=== PATIENT | female | born 1960 | race Hispanic/Latino ===

== ENCOUNTER 2018-06-15 11:29 | Emergency (ER) | payer MEDICARE ==
[2018-06-15] MEDS ORDERED: KETOROLAC TROMETHAMINE 60 MG/2 ML VIAL ONE (12:02)
== END 2018-06-15 12:57 | disposition home or self-care (01) ==
LOC: EDH 11:29
DX: S13.4XXA Sprain of ligaments of cervical spine, initial encounter (principal); E11.9 Type 2 diabetes mellitus without complications; I10 Essential (primary) hypertension; E78.5 Hyperlipidemia, unspecified; Z88.6 Allergy status to analgesic agent; Z88.2 Allergy status to sulfonamides; V49.59XA Passenger injured in collision with other motor vehicles in traffic accident, initial encounter; Y93.89 Activity, other specified; Y92.89 Other specified places as the place of occurrence of the external cause; Y99.8 Other external cause status
CPT/HCPCS: 72040; 99284; J1885

== ENCOUNTER → 2023-06-16 | Outpatient (CLI) | payer MEDICARE ==
[~2023-06-16] MED LIST: HONEY 1 APPL/ML TUBE TP ONE; LIDOCAINE HCL 4% LTA SOL 4 ML VIAL ONE
== END | disposition home or self-care (01) ==
LOC: WHH 08:37
PROVIDERS: ATTEND Nurse Practitioner Family
DX: E11.621 Type 2 diabetes mellitus with foot ulcer (principal); L97.522 Non-pressure chronic ulcer of other part of left foot with fat layer exposed; L97.512 Non-pressure chronic ulcer of other part of right foot with fat layer exposed; G60.0 Hereditary motor and sensory neuropathy; I10 Essential (primary) hypertension; E78.5 Hyperlipidemia, unspecified; E66.9 Obesity, unspecified; F32.A Depression, unspecified; M19.90 Unspecified osteoarthritis, unspecified site; Z68.30 Body mass index [BMI] 30.0-30.9, adult; Z90.710 Acquired absence of both cervix and uterus; Z79.82 Long term (current) use of aspirin; Z79.84 Long term (current) use of oral hypoglycemic drugs; Z79.899 Other long term (current) drug therapy
CPT/HCPCS: 11042; A4450

== ENCOUNTER → 2023-06-23 | Outpatient (CLI) | payer MEDICARE | END | disposition home or self-care (01) | LOC: WHH 08:18 | PROVIDERS: ATTEND Nurse Practitioner Family | DX: E11.621 Type 2 diabetes mellitus with foot ulcer (principal); L97.522 Non-pressure chronic ulcer of other part of left foot with fat layer exposed; L97.512 Non-pressure chronic ulcer of other part of right foot with fat layer exposed; G60.0 Hereditary motor and sensory neuropathy; I10 Essential (primary) hypertension; E78.5 Hyperlipidemia, unspecified; E66.9 Obesity, unspecified; F32.A Depression, unspecified; M19.90 Unspecified osteoarthritis, unspecified site; Z68.30 Body mass index [BMI] 30.0-30.9, adult; Z90.710 Acquired absence of both cervix and uterus; Z79.82 Long term (current) use of aspirin; Z79.84 Long term (current) use of oral hypoglycemic drugs; Z79.899 Other long term (current) drug therapy | CPT/HCPCS: 11042 ==

== ENCOUNTER → 2023-06-30 | Outpatient (CLI) | payer MEDICARE | END | disposition home or self-care (01) | LOC: WHH 08:03 | PROVIDERS: ATTEND Nurse Practitioner Family | DX: E11.621 Type 2 diabetes mellitus with foot ulcer (principal); L97.522 Non-pressure chronic ulcer of other part of left foot with fat layer exposed; L97.512 Non-pressure chronic ulcer of other part of right foot with fat layer exposed; G60.0 Hereditary motor and sensory neuropathy; I10 Essential (primary) hypertension; E78.5 Hyperlipidemia, unspecified; E66.9 Obesity, unspecified; F32.A Depression, unspecified; M19.90 Unspecified osteoarthritis, unspecified site; Z68.30 Body mass index [BMI] 30.0-30.9, adult; Z90.710 Acquired absence of both cervix and uterus; Z79.82 Long term (current) use of aspirin; Z79.84 Long term (current) use of oral hypoglycemic drugs; Z79.899 Other long term (current) drug therapy | CPT/HCPCS: 11042; A6209 ==

== ENCOUNTER → 2023-07-07 | Outpatient (CLI) | payer MEDICARE | END | disposition home or self-care (01) | LOC: WHH 08:14 | PROVIDERS: ATTEND Nurse Practitioner Family | DX: E11.621 Type 2 diabetes mellitus with foot ulcer (principal); L97.522 Non-pressure chronic ulcer of other part of left foot with fat layer exposed; L97.512 Non-pressure chronic ulcer of other part of right foot with fat layer exposed; G60.0 Hereditary motor and sensory neuropathy; I10 Essential (primary) hypertension; E78.5 Hyperlipidemia, unspecified; E66.9 Obesity, unspecified; F32.A Depression, unspecified; M19.90 Unspecified osteoarthritis, unspecified site; Z68.30 Body mass index [BMI] 30.0-30.9, adult; Z90.710 Acquired absence of both cervix and uterus; Z79.82 Long term (current) use of aspirin; Z79.84 Long term (current) use of oral hypoglycemic drugs; Z79.899 Other long term (current) drug therapy | CPT/HCPCS: 11042; A6021; A6209; A4450 ==

== ENCOUNTER → 2023-07-21 | Outpatient (CLI) | payer MEDICARE | END | disposition home or self-care (01) | LOC: WHH 07:59 | PROVIDERS: ATTEND Nurse Practitioner Family | DX: E11.621 Type 2 diabetes mellitus with foot ulcer (principal); L97.412 Non-pressure chronic ulcer of right heel and midfoot with fat layer exposed; L97.522 Non-pressure chronic ulcer of other part of left foot with fat layer exposed; L97.512 Non-pressure chronic ulcer of other part of right foot with fat layer exposed; G60.0 Hereditary motor and sensory neuropathy; I10 Essential (primary) hypertension; E78.5 Hyperlipidemia, unspecified; E66.9 Obesity, unspecified; F32.A Depression, unspecified; M19.90 Unspecified osteoarthritis, unspecified site; Z68.30 Body mass index [BMI] 30.0-30.9, adult; Z90.710 Acquired absence of both cervix and uterus; Z79.82 Long term (current) use of aspirin; Z79.84 Long term (current) use of oral hypoglycemic drugs; Z79.899 Other long term (current) drug therapy | CPT/HCPCS: G0463 ==

== ENCOUNTER → 2023-08-07 | Outpatient (CLI) | payer MEDICARE | END | disposition home or self-care (01) | LOC: WHH 08:04 | PROVIDERS: ATTEND Nurse Practitioner Family | DX: E11.621 Type 2 diabetes mellitus with foot ulcer (principal); L97.412 Non-pressure chronic ulcer of right heel and midfoot with fat layer exposed; L97.512 Non-pressure chronic ulcer of other part of right foot with fat layer exposed; L97.522 Non-pressure chronic ulcer of other part of left foot with fat layer exposed; G60.0 Hereditary motor and sensory neuropathy; I10 Essential (primary) hypertension; E78.5 Hyperlipidemia, unspecified; E66.9 Obesity, unspecified; F32.A Depression, unspecified; M19.90 Unspecified osteoarthritis, unspecified site; Z68.30 Body mass index [BMI] 30.0-30.9, adult; Z90.710 Acquired absence of both cervix and uterus; Z79.82 Long term (current) use of aspirin; Z79.84 Long term (current) use of oral hypoglycemic drugs; Z79.899 Other long term (current) drug therapy | CPT/HCPCS: G0463 ==

== ENCOUNTER → 2024-12-23 | Outpatient (CLI) | payer OTHER, MEDICARE ==
[~2024-12-23] MED LIST changes: -HONEY 1 APPL/ML TUBE TP ONE; +IOHEXOL 350 MG/ML 100ML INFUS..BTL IV ONE; -LIDOCAINE HCL 4% LTA SOL 4 ML VIAL ONE; +metoPROLOL tartRATE 1 MG/ML 5ML VIAL IV ONE
--- NOTE | 2024-12-23 15:10 | HMCIMG ---
CT CARDIAC ANGIO W/CONT. CCTA HISTORY: Chest pain COMPARISON: None TECHNIQUE: Multiple sequential axial images of the chest were obtained along with the CT angiogram of the chest study. Patient was given 100 cc of Omnipaque through intravenous route. FINDINGS: There is no evidence of pulmonary nodule or parenchymal disease. No pleural effusion or pericardial effusion is seen. There is no evidence of pneumothorax. There are normal size mediastinal and hilar lymph nodes. The heart is not enlarged. Degenerative changes of the thoracolumbar spine are present. IMPRESSION: 1. No evidence of pulmonary nodule or effusion is seen. Please see CT angiogram report of coronary arteries.
--- NOTE | 2024-12-27 13:55 | CARDIOLOGY ---
RAD REPORT: CORNARY CT ANGIO RADIOLOGY REPORT: CORONARY CT ANGIOGRAPHY DATE: December 27, 2024 QUALITY: Excellent CLINICAL HISTORY AND INDICATION: [ chest pain] TECHNIQUE: After obtaining a preliminary mobile security specialist image, contrast imaging performed on an [employer]illon [id number] scanner. A dedicated, limited window, coronary imaging protocol was used, with single breath-hold, retrospective ECG gating, and automated arrhythmia rejection. 100 cc of low osmolar contrast agent: Omnipaque 350 was delivered via a 18-gauge IV catheter in the right antecubital fossa, using a power injector and followed by 60 cc of normal saline bolus as a chaser. Collimated images were reformatted at 0.5 mm intervals, and sent to an offline independent workstation for interpretation, using 3D anatomic reconstructions: Curved multiplanar reconstructions, maximum intensity projections, and multiplanar imaging. 10 mg IV metoprolol was administered prior to scanning. 0.8 mg SL nitroglycerin was given. CORONARY ARTERY DESCRIPTIONS: The coronary arteries arise in normal position. Left main coronary artery: Normal caliber vessel that bifurcates into the LAD and LCx. No stenosis. Left anterior descending coronary artery: Normal caliber vessel and gives rise to diagonal and septal branches. There is calcified plaque in the proximal LAD with 20-30% stenosis. Left circumflex coronary artery: Normal caliber, nondominant and gives rise to a large OM branch. No stenosis. Right coronary artery: Large, dominant vessel giving rise to the PL and PDA branches. No stenosis. CAD-RADs: 2, mild non-obstructive CAD. Thoracic Aorta: Normal diameter. Jennifer Valdez MD Cardiovascular Disease [facility] JENNIFER VALDEZ MD December 27, 2024 13:55
== END | disposition home or self-care (01) ==
LOC: RAH 12-13 08:12
PROVIDERS: ATTEND Internal Medicine Cardiovascular Disease
DX: I20.9 Angina pectoris, unspecified (principal); M47.815 Spondylosis without myelopathy or radiculopathy, thoracolumbar region
CPT/HCPCS: 75574; J3490; Q9967 ×2

== ENCOUNTER 2025-01-19 11:23 | Emergency (ER) | payer OTHER, MEDICARE ==
[~2025-01-19] VITALS: Ht 147.3 cm; Wt 90.7 kg
[2025-01-19] MEDS: CYCLOBENZAPRINE HCL 10 MG TABLET PO ONE (12:20)
[2025-01-19] MEDS: ibuPROFEN 600 MG TABLET PO ONE (12:21)
[2025-01-19] MEDS ORDERED: CYCL10TA16 PO (12:48)
[2025-01-19] MEDS ORDERED: MELO-108 PO (12:48)
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
[2025-01-19 12:55] VITALS: BP 147/63; PULSE 72; RESP 16; TEMP 97.9; O2SAT 99
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
== END 2025-01-19 13:00 | disposition home or self-care (01) ==
LOC: EDH 11:23
DX: S13.4XXA Sprain of ligaments of cervical spine, initial encounter (principal); E11.9 Type 2 diabetes mellitus without complications; E78.00 Pure hypercholesterolemia, unspecified; I10 Essential (primary) hypertension; Z88.2 Allergy status to sulfonamides; Z88.5 Allergy status to narcotic agent; V89.2XXA Person injured in unspecified motor-vehicle accident, traffic, initial encounter; Y93.89 Activity, other specified; Y92.89 Other specified places as the place of occurrence of the external cause; Y99.8 Other external cause status
CPT/HCPCS: 72050; 73030; 99284

== ENCOUNTER 2025-05-10 14:05 | Emergency (ER) | payer OTHER, MEDICAID ==
[~2025-05-10] VITALS: Ht 147.3 cm; Wt 88.5 kg
[~2025-05-10 14:05] MED LIST changes: +CYCL10TA16 PO; -IOHEXOL 350 MG/ML 100ML INFUS..BTL IV ONE; +MELO-108 PO; -metoPROLOL tartRATE 1 MG/ML 5ML VIAL IV ONE
[2025-05-10 15:20] LABS: IMMATURE GRANULOCYTE ABSOLUTE 0.02 K/uL (0-1); NUCLEATED RED BLOOD CELLS 0.0 % (0.0-0.19); PLATELET COUNT (AUTO) 161 K/uL (130-400); RED BLOOD CELL COUNT(AUTO) 4.42 MIL/uL (4.00-5.50); RED CELL DISTRIBUTION WIDTH 13.2 % (11.0-15.5); WHITE BLOOD COUNT (AUTO) 6.2 K/uL (4.8-10.8)
--- NOTE | 2025-05-10 15:27 | ERN ---
General Chief Complaint: Multiple Complaints Stated Complaint: HEAD,BACK,AND LEFT SHOULDER INJURY Time Seen by MD: 14:27 History of Present Illness Initial Comments Patient is a 65-year-old female who came in due to parts of ceiling falling on top of her this morning. Patient has pain on top of the head, shoulder pain, chest pain and back pain. She also has tenderness on the shoulder area. No ten derness on the chest. He does not have any confusion, sensory changes, weakness or slurred speech. She did complain of associated shortness of breath. Patient has a history of stroke 5 years ago and she currently wears a loop recorder. She does not know why she has a loop recorder. Patient takes aspirin at home. Because of her complaints of chest pain and shortness of breath we did EKG which showed left bundle branch block without a STEMI. But the left bundle branch b lock as was not present on her previous EKG so we are doing a cardiac workup for this patient. We also ordered a left shoulder x-ray as the patient had pain and tenderness there. Patients serial troponin came back neagtive at 8 and 8. She did have creatinine of 1.2 so we started her on IV fluids. Her remaining labs were normal. Patient received Acetaminophen of 500 mg po once which helped with her pain. She did not complain of any pain after. She is also receiving IV fluids for the dehydration. She is getting ceftriaxone 1gm for her UTI and getting discharged on keflex. Timing/Duration: 4-6 hours, constant Severity: moderate Associated Symptoms: chest pain, shortness of breath Allergies: Coded Allergies: Sulfa (Sulfonamide Antibiotics) (Unverified Allergy, Unknown, 01/19/25) codeine (Unverified Allergy, Unknown, 01/19/25) Home Meds Active Scripts Cyclobenzaprine HCl (Flexeril) 10 Mg Tab, 1 TAB PO TID for muscle spasms for 5 Days, #15 TAB 0 Refills Prov:EMMIE GHOSH DO 01/19/25 Meloxicam (Meloxicam) 15 Mg Tablet, 15 MG PO DAILY PRN for PAIN for 10 Days, #10 TAB Prov:EMMIE GHOSH DO 01/19/25 Past Medical History Past Medical History: Diabetes-Type II, Gallstones, High Cholesterol, Hypertension, Stroke Medical History Other: NEUROPATHY Past Surgical History: Other Surgical History Other: LOOP RECORDER, ACHIILES, HERNIA Respiratory: (+) short of breath Cardiovascular: (+) chest pain Gastrointestinal/Abdominal: (+) nausea Review of Systems: was completed, & the rest were negative. Physical Exam General Appearance: (+) moderate distress Orientation: (+) alert, (+) oriented x 3 Respiratory: (+) chest non-tender, (+) lungs clear, (+) well ventilated Heart: (+) regular, (+) no gallop Neurologic/Psychiatric: (+) normal speech, (+) no motor defecits, (+) no sensory deficits Skin: (+) normal color Results Laboratory and Microbiology Lab and Micro Result Laboratory Tests Test 05/10/25 15:12 05/10/25 15:52 05/10/25 16:26 White Blood Count 6.2 K/uL (4.8-10.8) Red Blood Count 4.42 MIL/uL (4.00-5.50) Hemoglobin 13.1 g/dL (12.0-16.0) Hematocrit 38.7 % (36-48) Mean Corpuscular Volume 87.6 fL (79-99) Mean Corpuscular Hemoglobin 29.6 pg (27.0-33.0) Mean Corpuscular Hemoglobin Concent 33.9 g/dL (32.0-36.0) Red Cell Distribution Width 13.2 % (11.0-15.5) Platelet Count 161 K/uL (130-400) Mean Platelet Volume 8.8 fL (7.5-10.5) Immature Granulocyte % (Auto) 0.3 % (0-1) Neutrophils (%) (Auto) 60.6 % (40.0-77.0) Lymphocytes (%) (Auto) 31.3 % (21.0-51.0) Monocytes (%) (Auto) 5.8 % (3.0-13.0) Eosinophils (%) (Auto) 1.5 % (0.0-8.0) Basophils (%) (Auto) 0.5 % (0.0-5.0) Neutrophils # (Auto) 3.8 K/uL (1.8-7.7) Lymphocytes # (Auto) 1.9 K/uL (1.0-4.8) Monocytes # (Auto) 0.4 K/uL (0.1-1.0) Eosinophils # (Auto) 0.09 K/uL (0.00-0.70) Basophils # (Auto) 0.03 K/uL (0.00-0.20) Absolute Immature Granulocyte (auto 0.02 K/uL (0-1) Nucleated Red Blood Cells 0.0 % (0.0-0.19) Sodium Level 139 mmol/L (136-145) Potassium Level 4.2 mmol/L (3.5-5.1) Chloride Level 103 mmol/L (101-111) Carbon Dioxide Level 27 mmol/L (21-32) Blood Urea Nitrogen 27 mg/dL (7-18) H Creatinine 1.2 mg/dL (0.5-1.0) H Glomerular Filtration Rate Calc 50 mL/min (>90) Random Glucose 217 mg/dL (70-105) H Total Calcium 9.1 mg/dL (8.5-10.1) Magnesium Level 1.90 mg/dL (1.80-2.40) Troponin I High Sensitivity 8 ng/L (4-50) 8 ng/L (4-50) Urine Color LIGHT-YELLOW (YELLOW) Urine Appearance CLOUDY (CLEAR) H Urine pH 5.0 (5.0-8.0) Urine Specific [place] 1.019 (1.001-1.031) Urine Protein NEGATIVE mg/dL (NEGATIVE) Urine Glucose (UA) >=1000 mg/dL (NEGATIVE) H Urine Ketones NEGATIVE mg/dL (NEGATIVE) Urine Occult Blood NEGATIVE (NEGATIVE) Urine Nitrate NEGATIVE (NEGATIVE) Urine Bilirubin NEGATIVE mg/dL (NEGATIVE) Urine Urobilinogen 0.2 mg/dL (0.2-1.0) Urine Leukocyte Esterase 250 [place]/uL (NEGATIVE) H Urine RBC 2-5 /HPF (0-1) H Urine WBC 51-100 /HPF (0-1) H Urine WBC Clumps (Auto) MANY /HPF (0-1) Urine Squamous Epithelial Cells RARE /HPF (0-2) Urine Bacteria MANY /HPF (None Seen) Labs Reviewed?: Yes EKG/XRAY/US/CT/MRI EKG: (+) LBBB EKG Comment 05/10/2025 14:26:48 Rate 72 Sinus rhythm NC 117 Left bundle-branch block No NSTEMI X-RAY Comment [facility] [address] [place] [address] IMAGING REPORT Signed PATIENT: RICK YOUNG MR#: [id number] : 1960 SEX: F AGE: 65 LOCATION: EDH ORDER 25 STATUS: REG ER REPORT#: [id number] SERVICE 24 REASON: cp ORDERING PHYSICIAN: KIMBERLY MILLER MD PROCEDURE: CXR1VW - CHEST 1VW EXAM: CR Chest, 1 View. CLINICAL HISTORY: cp COMPARISON: None provided. FINDINGS: LUNGS: The lungs show no infiltrate or other acute finding. PLEURAL SPACES: No evidence of pleural effusion or pneumothorax. MEDIASTINUM: Cardiac size and mediastinal contours within normal limits. BONES: No acute osseous abnormality. IMPRESSION: No acute cardiopulmonary pathology is evident. /[place] DICTATED BY: ERINN TRIANA MD DATE: 05/10/251707 ELECTRONICALLY SIGNED BY: ERINN TRIANA MD DATE: 05/10/251707 [facility] [address] [place] [id number] IMAGING REPORT Signed PATIENT: RICK YOUNG MR#: [id number] : 1960 SEX: F AGE: 65 LOCATION: ED ORDER 25 STATUS: REG ER [facility] REPORT#: [id number] SERVICE 24 REASON: cp ORDERING PHYSICIAN: KIMBERLY MILLER MD PROCEDURE: SHOL 2V LT - SHOULDER COMP 2+VWS LT EXAM: CR right Shoulder, 2 View. CLINICAL HISTORY: cp COMPARISON: None provided. FINDINGS: BONES: No acute fracture or aggressive appearing osseous lesion. JOINTS: No dislocation. Mild to moderate degenerative joint disease changes acromioclavicular joint SOFT TISSUES: The soft tissues are unremarkable. IMPRESSION: 1. No acute osseous injury. 2. Mild to moderate degenerative joint disease of the acromioclavicular joint. /[place] DICTATED BY: ERINN TRIANA MD DATE: 05/10/251707 ELECTRONICALLY SIGNED BY: ERINN TRIANA MD DATE: 05/10/251707 MDM MDM: Differential diagnosis: Dehydration, UTI, shoulder contusion Rationale: Tests considered and ordered secondary to shared decision making include: Previous outside records reviewed: Old ER visits. Risk of complication and/or morbidity or mortality of patient management: None Medications-Per medication reconciliation Need for hospitalization: Patient does not meet criteria for hospitalization. Need for emergency major/minor surgery: No Patient is a 65-year-old female coming in complaining of shoulder discomfort and mild head discomfort after a piece of ceiling fell on her head. She did not lose consciousness. On physical exam there is tenderness to the shoulder x-ray did not disclose acute findings due to the history of cardiac issues a cardiac workup was performed left bundle-branch was seen. Patient has not had any chest pain throughout ER visit states he feels much better. On laboratory workup she also has a urinary tract infection mild dehydration with a mild elevation of creatinine to 1.2. Patient was hydrated with IV fluids given 1 g of Rocephin we will be discharged in stable condition I did advised her appropriate follow up with PCP for long-term management. Patient was advised to stay for further evaluation she refused states he will follow up with the PCP. ED Course Orders Procedure Category Date Status Time Chest 1vw RAD 05/10/25 Resulted 14:25 Shoulder Comp 2+Vws Lt RAD 05/10/25 Resulted 14:25 12 Lead Ekg Tracing- EKG 05/10/25 Complete Technical 14:25 Acetaminophen 500mg PHA 05/10/25 Complete Tab (Tylenol 500mg T 14:30 Cbc With Differential LAB 05/10/25 Complete 15:04 Nitroglycerin 0.4mg PHA 05/10/25 In Process Sl Tab (Nitrostat) 15:30 Magnesium LAB 05/10/25 Complete 15:04 Troponin I High LAB 05/10/25 Complete Sensitivity 15:04 Urinalysis Profile LAB 05/10/25 Complete 15:04 Basic Metabolic Panel LAB 05/10/25 Complete 15:04 Culture Urine ISELA 05/10/25 In Process 15:53 Troponin I High LAB 05/10/25 Complete Sensitivity 16:16 0.9%Nacl 1000ml (Ns PHA 05/10/25 Complete 1000ml) 17:30 Ceftriaxone 1g Vial PHA 05/10/25 Logged (Rocephine 1g Inj) 18:00 Current Medications Medications (Trade) Dose Ordered Sig/Alan Route PRN Reason Start Time Stop Time Status Last Admin Dose Admin Acetaminophen (TYLenol 500MG TAB) 500 mg ONCE ONCE PO 05/10/25 14:30 05/10/25 14:31 DC 05/10/25 15:11 Ceftriaxone Sodium (ROCEphine 1G INJ) 1 gm ONCE ONCE IVPB 05/10/25 18:00 05/10/25 18:01 UNV Nitroglycerin (Nitrostat) 0.4 mg Q5M PRN SL CHEST PAIN 05/10/25 15:30 Sodium Chloride 1,000 ml @ 0 mls/hr ONCE ONCE IV 05/10/25 17:30 05/10/25 17:31 DC 05/10/25 17:46 Vital Signs Date Time Temp Pulse Resp B/P (MAP) Pulse Ox O2 Delivery O2 Flow Rate FiO2 05/10/25 17:18 96.8 72 16 122/66 99 Room Air* 0 21 05/10/25 15:45 98.2 71 16 119/59 97 Room Air* 0 21 05/10/25 14:07 98.2 74 20 123/57 99 HEART Score Response (Comments) Value History: Low suspicion (0) 0 EKG: Repolarization changes 1 Age: > 65yrs (+2) 2 Total 3 Problem List Problem Lists: (1) left shoulder pain most likely due to shoulder contusion (2) Chest pain, most likely due to costochondritis (3) UTI (urinary tract infection) (4) Dehydration DX & DISP Disposition: Discharge Departure Impression: Primary Impression: Chest pain, most likely due to costochondritis Additional Impressions: left shoulder pain due to contusion, UTI (urinary tract infection), Dehydration Condition: Stable Scripts Cephalexin Monohydrate (Keflex) 500 Mg Cap 1 CAP PO BID for 10 Days, #20 CAP 0 Refills Prov: KIMBERLY MILLER MD 05/10/25 Additional Instructions: You have been reviewed in the emergency department at [facility] after presenting with chest pain. After considering your history, your risk factors, your EKG and your blood test troponins, have been found to be at very low risk less than (1 in 100) of having a major adverse cardiac event (like heart attack) in the near future. In the " low risk" group, the risks of doing further tests and treatment as the inpatient outweighs the benefits. In many patients in the low risk group for the test of any sort or unnecessary, however he should discuss this further with his general practitioner who will understand the medical and personal backgrounds better. Because we have never declared you" no risk" we would suggest. 1 returning for medical review if you have further episodes of chest pain/arm pain or other concerning symptoms like dizziness, collapse, palpitations or shortness of breath. 2. Following up with your local doctor who will consider the need for further testing and will also ensure that any modifiable risk factors you may have for heart disease are optimally managed. Patient will be discharged in stable condition at the moment discharge patient states , no chest pain Referrals: LAKHWINDER GODFREY MD (PCP) Time of Disposition: 17:54 VERONICA LUTZ MD May 10, 2025 15:27 KIMBERLY MILLER MD May 10, 2025 17:55
[2025-05-10 15:37] LABS: CREATININE 1.2 mg/dL (0.5-1.0); GLOMERULAR FILTR. RATE CALC 50.0 mL/min (>90); GLUCOSE,RANDOM 217.0 mg/dL (70-105); SODIUM SERUM 139.0 mmol/L (136-145); UREA NITROGEN, BLOOD 27.0 mg/dL (7-18)
--- NOTE | 2025-05-10 16:09 | HMCIMG ---
EXAM: CR Chest, 1 View. CLINICAL HISTORY: cp COMPARISON: None provided. FINDINGS: LUNGS: The lungs show no infiltrate or other acute finding. PLEURAL SPACES: No evidence of pleural effusion or pneumothorax. MEDIASTINUM: Cardiac size and mediastinal contours within normal limits. BONES: No acute osseous abnormality. IMPRESSION: No acute cardiopulmonary pathology is evident. /[place]
--- NOTE | 2025-05-10 16:09 | HMCIMG ---
EXAM: CR right Shoulder, 2 View. CLINICAL HISTORY: cp COMPARISON: None provided. FINDINGS: BONES: No acute fracture or aggressive appearing osseous lesion. JOINTS: No dislocation. Mild to moderate degenerative joint disease changes acromioclavicular joint SOFT TISSUES: The soft tissues are unremarkable. IMPRESSION: 1. No acute osseous injury. 2. Mild to moderate degenerative joint disease of the acromioclavicular joint. /[place]
[2025-05-10] MEDS: NITROGLYCERIN 0.4 MG SL TAB SL PRN (16:12)
[2025-05-10 16:13] LABS: APPEARANCE,URINE CLOUDY (CLEAR); GLUCOSE, URINE (UA) >=1000 mg/dL (NEGATIVE); LEUKOCYTE ESTERASE ,URINE 250 Leu/uL (NEGATIVE); NITRATE,URINE NEGATIVE (NEGATIVE); OCCULT BLOOD,URINE NEGATIVE (NEGATIVE)
[2025-05-10 16:14] LABS: ADD UA MICROSCOPIC YES
[2025-05-10 16:19] LABS: SQUAMOUS EPITHELIAL CELL,UR RARE /HPF (0-2); WBC CLUMP MANY /HPF (0-1)
--- NOTE | 2025-05-10 17:16 | EKG ---
[facility] Test Date: 2025-05-10 Test Time: 14:26:48 Pat Name: RICK YOUNG Department: ED Room: Gender: F Fur Nailer: [id number] : 1960 Requested By: KIMBERLY MILLER Order Number: [id number] Reading MD: Tyler Weir Measurements Intervals [place] Rate: 72 P: 0 TX: 117 QRS: -3 QRSD: 152 T: 132 QT: 414 QTc: 454 Interpretive Statements Sinus rhythm Left bundle branch block No previous ECG available for comparison Electronically Signed On 05-12-2025 06:52:13 CDT by Tyler Weir Please click the below link to view image of tracing.
[2025-05-10] MEDS: 0.9%NACL 1000ML 1,000 ML IV ONE (17:46)
[2025-05-10] MEDS ORDERED: CEPH500B PO (17:54)
[2025-05-10 19:22] VITALS: BP 124/64; PULSE 70; RESP 16; TEMP 96.8; O2SAT 99
== END 2025-05-10 19:40 | disposition home or self-care (01) ==
LOC: EDH 14:05
DX: S40.012A Contusion of left shoulder, initial encounter (principal); N39.0 Urinary tract infection, site not specified; R07.89 Other chest pain; I10 Essential (primary) hypertension; Z79.82 Long term (current) use of aspirin; Z86.73 Personal history of transient ischemic attack (TIA), and cerebral infarction without residual deficits; Z88.2 Allergy status to sulfonamides; Z88.5 Allergy status to narcotic agent; X58.XXXA Exposure to other specified factors, initial encounter; Y93.89 Activity, other specified; Y92.89 Other specified places as the place of occurrence of the external cause; Y99.8 Other external cause status
CPT/HCPCS: 99285; 96365; 71045; 96361; 83735; 84484 ×2; 80048; 85025; 87086 ×2; 87186; 81001; 36415; 73030; 93005; J7030; J0696